=== PATIENT | male | born 1990 | race Caucasian/White ===

== ENCOUNTER 2017-09-09 20:10 | Observation (INO) | payer SELFPAY ==
[~2017-09-09] VITALS: Ht 193 cm; Wt 186.5 kg
--- OUTSIDE RECORDS SUMMARY | 2017-09-09 20:18 | XMS REPORT ---
Author Author [facility] Medical Staff Organization [facility] Address [address] [place] [address] Phone [phone] Summary purpose CCDA Sent to [facility] Chief Complaint and Reason for Visit No authorized Reason for Visit (Admitting Diagnosis) is available for this visit. Problem list No authorized problems tracked for continuity of care are available for this visit. Encounters No authorized problems tracked for encounter diagnoses are available for this visit. Medications No medications recorded for this patient visit Allergies, adverse reactions, alerts No allergy information is available for this patient. Immunizations No immunizations recorded for this patient visit Relevant diagnostic tests and/or laboratory data No authorized results are available for this patient visit History of procedures Procedure Code Code Type Description Date Performed Performing Physician 77844 CPT-4 SPECIMEN HANDLING 02-14-2016 ANDREEA CORTEZ Functional status No functional or cognitive status observations are available for this visit. Vital signs No authorized vital signs are available for this visit. Social history No Social History or smoking status observations were recorded for this visit. ( Unknown if ever smoked.) Treatment Plan No treatment plan text is available for this visit. Hospital discharge instructions No discharge instruction text is available for this visit.
--- OUTSIDE RECORDS SUMMARY | 2017-09-09 20:18 | XMS REPORT ---
Author Author [facility] Medical Staff Organization [facility] Address [address] [place] [address] Phone [phone] Summary purpose CCDA Sent to [facility] Chief Complaint and Reason for Visit [...] Code Type Description Date Performed Performing Physician 65088 CPT-4 SPECIMEN HANDLING 07-12-2015 ANDREEA CORTEZ Functional status No functional or [...]
--- OUTSIDE RECORDS SUMMARY | 2017-09-09 20:18 | XMS REPORT ---
Author [facility] Medical Staff Organization [facility] Address [address] [place] [address] Phone [phone] Summary purpose CCDA Sent to [facility] Chief Complaint and Reason for Visit Admit Diagnosis 1 HEALTH EXAM-GROUP SURVEY Problem list No authorized problems tracked for continuity of care are available for this visit. Encounters No authorized problems tracked for encounter diagnoses are available for this visit. Medications No home medications recorded for this patient visit Allergies, adverse reactions, alerts No allergy information is available for this patient. Immunizations No immunizations recorded for this patient visit Relevant diagnostic tests and/or laboratory data No authorized results are available for this patient visit History of procedures Procedure Code Code Type Description Date Performed Performing Physician 49096 CPT-4 SPECIMEN HANDLING PT-LAB 10-07-2014 ANDREEA CORTEZ Functional status No functional or [...]
--- OUTSIDE RECORDS SUMMARY | 2017-09-09 20:18 | XMS REPORT | Continuity of Care Document ---
Author Author [facility] Organization [facility] Address Unknown Phone Unavailable Allergies There is no data. Medications Medication Packaging Start Date Stop Date Route Dosage Sig BACTRIM DS ORAL 11/04/2015 11/11/2015 ORAL 28 twice daily Problems Date Dx Coded Attending Type Code Diagnosis Diagnosed By 10/07/2014 ANDREAE CORTEZ MD V70.5 HEALTH EXAM-GROUP SURVEY 07/12/2015 ANDREEA CORTEZ MD Z02.1 Encounter for pre-employment examination 02/14/2016 ANDREEA CORTEZ MD Z02.1 Encounter for pre-employment examination Procedures Code [place] [address] SPECIMEN HANDLING ANDREEA CORTEZ MD 10/07/2014 51781 SPECIMEN HANDLING PT-LAB ANDREEA CORTEZ MD 07/12/2015 98378 SPECIMEN HANDLING PT-LAB ANDREEA CORTEZ MD 02/14/2016 Results There is no data. Encounters ACCT No. Visit Date/Time Discharge Status Pt. Type Provider Facility Loc./Unit Complaint [id number] 02/14/2016 08:51:00 02/14/2016 08:51:00 DIS Outpatient ANDREEA CORTEZ MD [facility] LAB [id number] 07/12/2015 16:39:00 07/12/2015 16:39:00 DIS Outpatient ANDREEA CORTEZ MD [facility] LAB [id number] 10/07/2014 11:42:00 10/07/2014 11:42:00 DIS Outpatient ANDREEA CORTEZ MD [facility] LAB [id number] 06/27/2017 13:40:00 06/27/2017 23:59:59 CLS Outpatient GRETCHEN MOLINA [facility] [place] [id number] 11/05/2015 16:00:38 11/05/2015 23:59:59 CLS Outpatient MEERA LINARES [facility] LAB [id number] 11/18/2015 07:29:29 Document Registration [email or web address] 10/07/2014 11:43:22 ACT Document Registration
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
[2017-09-09] MEDS ORDERED: LACTATED RINGERS 1,000 ML IV ONE (21:01)
[2017-09-09] MEDS ORDERED: KETOROLAC 30 MG/ML VIAL IVP STA (21:01)
[2017-09-09] MEDS ORDERED: SERT100T8 PO (21:08)
[2017-09-09 21:14] LABS: BILIRUBIN,URINE NEGATIVE (NEGATIVE); CLARITY,URINE CLEAR; COLOR,URINE YELLOW; GLUCOSE, URINE (UA) NEGATIVE (NEGATIVE); KETONES,URINE NEGATIVE (NEGATIVE); LEUKOCYTE ESTERASE ,URINE NEGATIVE (NEGATIVE); NITRITE,URINE NEGATIVE (NEGATIVE); PH,URINE 6 (5-9); PROTEIN,URINE NEGATIVE (NEGATIVE); UROBILINOGEN,URINE 1 MG/DL (NORMAL)
[2017-09-09 21:15] LABS: BASOPHILS % (AUTO) 0 % (0-10); EOSINOPHILS # (AUTO) 0.2 10^3/uL (0.0-0.3); EOSINOPHILS % (AUTO) 2 % (0-10); HEMATOCRIT 43 % (40-54); HEMOGLOBIN 15.1 G/DL (13.3-17.7); LYMPHOCYTES # (AUTO) 2.5 X 10^3 (1.0-4.0); LYMPHOCYTES % (AUTO) 23 % (12-44); MEAN CORPUSCULAR HEMOGLOBIN 30 PG (25-34); MEAN CORPUSCULAR HGB CONC 35 G/DL (32-36); MEAN CORPUSCULAR VOLUME 84 FL (80-99); MEAN PLATELET VOLUME 10.5 FL (7.4-10.4); MONOCYTES # (AUTO) 0.8 X 10^3 (0.0-1.0); MONOCYTES % (AUTO) 8 % (0-12); NEUTROPHILS # (AUTO) 7.2 X 10^3 (1.8-7.8); NEUTROPHILS % (AUTO) 67 % (42-75); PLATELET COUNT 327 10^3/uL (130-400); RED BLOOD COUNT 5.11 10^6/uL (4.35-5.85); WHITE BLOOD COUNT 10.9 10^3/uL (4.3-11.0)
[2017-09-09] MEDS ORDERED: ONDANSETRON 4 MG/2 ML (SDV) Z0FRAN IVP ONE (21:15)
[2017-09-09 21:25] LABS: BACTERIA,URINE NEGATIVE /HPF; SQUAMOUS EPITHELIAL CELL,UR RARE /HPF; WBC,URINE RARE /HPF
--- NOTE | 2017-09-09 21:37 | Diagnostic Imaging Report ---
PROCEDURE: CT urinary tract, rule out kidney stone. TECHNIQUE: Multiple contiguous axial images were obtained through the abdomen and pelvis without the use of intravenous contrast. INDICATION: Right-sided abdominal pain. COMPARISON: None available. FINDINGS: Evaluation of the abdominal viscera is mildly limited without contrast. Lower chest: The lung bases are clear. No pericardial or pleural effusion. Peritoneum: No free intraperitoneal air or fluid. Liver and biliary system: Diffuse hypoattenuation of the liver is indicative of hepatic steatosis. No focal hepatic lesion by noncontrast imaging. The gallbladder is normal. No biliary duct dilation. Spleen and Pancreas: Spleen is normal. Unenhanced pancreas is grossly normal. Adrenals: Normal. tract: No renal or ureteral calculi. No obstructive uropathy. Urinary bladder is decompressed, limiting evaluation. Prostate and seminal vesicles are normal in appearance. GI tract: Stomach is decompressed. No bowel obstruction. No pericolonic inflammatory changes. Normal appendix. Vasculature and Lymph nodes: Normal caliber aorta. No abdominal or pelvic lymphadenopathy. Musculoskeletal: No concerning osseous lesion. IMPRESSION: 1. No acute obstructive or inflammatory process in the abdomen or pelvis. 2. No urinary tract calculi. 3. Diffuse hepatic steatosis. Dictated by: Dictated on workstation # [id number]
[2017-09-09 21:38] LABS: ALANINE AMINOTRANSFERASE 51 U/L (0-55); ALBUMIN 4.5 GM/DL (3.2-4.5); ALKALINE PHOSPHATASE 73 U/L (40-136); AMYLASE 37 U/L (25-125); BILIRUBIN,TOTAL 0.4 MG/DL (0.1-1.0); BUN/CREATININE RATIO 9; CALCIUM 9.6 MG/DL (8.5-10.1); CARBON DIOXIDE 24 MMOL/L (21-32); CHLORIDE 107 MMOL/L (98-107); CREATININE SERUM 0.85 MG/DL (0.60-1.30); GFR ESTIMATED > 60; GLUCOSE 97 MG/DL (70-105); LIPASE 19 U/L (8-78); POTASSIUM 3.7 MMOL/L (3.6-5.0); SODIUM 138 MMOL/L (135-145); TOTAL PROTEIN 7.5 GM/DL (6.4-8.2)
--- NOTE | 2017-09-09 21:43 | Diagnostic Imaging Report ---
INDICATION: Right-sided abdominal pain. COMPARISON: CT abdomen and pelvis performed earlier the same day. TECHNIQUE: KUB. FINDINGS: Nonobstructive bowel gas pattern. No free intraperitoneal air. No mineralized urinary tract calculi by radiography. Normal regional skeleton. IMPRESSION: Normal abdominal radiographs. Dictated by: Dictated on workstation # [id number]
[2017-09-09] MEDS ORDERED: morphine INJ 10 MG/ML 1ML (SYR OR VIAL) IVP STA (21:45)
[2017-09-09] MEDS ORDERED: FAMOTIDINE 20MG/2ML IV (PEPCID) ONE (21:58)
[2017-09-09] MEDS ORDERED: diphenhydrAMINE 50 MG/ML INJ (BENADRYL) ONE (21:58)
--- OUTSIDE RECORDS SUMMARY | 2017-09-09 22:02 | XMS REPORT | Continuity of Care Document ---
Author Author [facility] Organization [facility] Address Unknown Phone Unavailable Allergies There is no data. Medications Medication Packaging Start Date Stop Date Route Dosage Sig BACTRIM DS ORAL 11/04/2015 11/11/2015 ORAL 28 twice daily Problems Date Dx Coded Attending Type Code Diagnosis Diagnosed By 10/07/2014 ANDREEA CORTEZ MD V70.5 HEALTH EXAM-GROUP SURVEY 07/12/2015 ANDREEA CORTEZ MD Z02.1 Encounter for pre-employment examination 02/14/2016 ANDREEA CORTEZ MD Z02.1 Encounter for pre-employment examination Procedures Code Description [place] [address] SPECIMEN HANDLING ANDREEA CORTEZ MD 10/07/2014 38570 SPECIMEN HANDLING PT-LAB ANDREEA CORTEZ MD 07/12/2015 83343 SPECIMEN HANDLING PT-LAB ANDREEA CORTEZ MD 02/14/2016 Results There is no data. Encounters ACCT No. Visit Date/Time Discharge Status Pt. Type Provider Facility Loc./Unit Complaint [id number] 02/14/2016 08:51:00 02/14/2016 08:51:00 DIS Outpatient ANDREEA CORTEZ MD [facility] LAB [id number] 07/12/2015 16:39:00 07/12/2015 16:39:00 DIS Outpatient ANDREEA CORTEZ MD [facility] LAB [id number] 10/07/2014 11:42:00 10/07/2014 11:42:00 DIS Outpatient ANDREEA CORTEZ MD [facility] LAB [id number] 06/27/2017 13:40:00 06/27/2017 23:59:59 CLS Outpatient GRETCHEN MOLINA [facility] [id number] 11/05/2015 16:00:38 11/05/2015 23:59:59 CLS Outpatient MEERA LIANRES [facility] LAB [id number] 11/18/2015 07:29:29 Document Registration [email or web address] 10/07/2014 11:43:22 ACT Document Registration
[2017-09-09] MEDS ORDERED: KETOROLAC 30 MG/ML VIAL IVP PRN (23:45)
[2017-09-09] MEDS ORDERED: fentaNYL INJECTION 100 MCG/2 ML AMP IV PRN (23:45)
[2017-09-10 00:05] VITALS: BP 140/80
[2017-09-10] MEDS: D5 1/2 NS W/KCL 20 MEQ/L 1,000 ML IV SCH ×3 (00:47→13:48)
[2017-09-10] MEDS: ONDANSETRON 4 MG/2 ML (SDV) Z0FRAN IV PRN ×2 (00:47→08:45)
[2017-09-10 04:11] VITALS: BP 133/85
[2017-09-10 06:30] LABS: BASOPHILS % (AUTO) 0 % (0-10); EOSINOPHILS # (AUTO) 0.2 10^3/uL (0.0-0.3); EOSINOPHILS % (AUTO) 3 % (0-10); HEMATOCRIT 40 % (40-54); HEMOGLOBIN 13.9 G/DL (13.3-17.7); LYMPHOCYTES # (AUTO) 3.2 X 10^3 (1.0-4.0); LYMPHOCYTES % (AUTO) 35 % (12-44); MEAN CORPUSCULAR HEMOGLOBIN 30 PG (25-34); MEAN CORPUSCULAR HGB CONC 35 G/DL (32-36); MEAN CORPUSCULAR VOLUME 86 FL (80-99); MEAN PLATELET VOLUME 10.9 FL (7.4-10.4); MONOCYTES # (AUTO) 0.7 X 10^3 (0.0-1.0); MONOCYTES % (AUTO) 8 % (0-12); NEUTROPHILS % (AUTO) 55 % (42-75); PLATELET COUNT 268 10^3/uL (130-400); RED BLOOD COUNT 4.68 10^6/uL (4.35-5.85); WHITE BLOOD COUNT 9.1 10^3/uL (4.3-11.0)
[2017-09-10 06:42] LABS: ALANINE AMINOTRANSFERASE 43 U/L (0-55); ALBUMIN 3.8 GM/DL (3.2-4.5); ALKALINE PHOSPHATASE 62 U/L (40-136); BILIRUBIN,TOTAL 0.4 MG/DL (0.1-1.0); BUN/CREATININE RATIO 9; CALCIUM 9.2 MG/DL (8.5-10.1); CARBON DIOXIDE 26 MMOL/L (21-32); CHLORIDE 108 MMOL/L (98-107); CREATININE SERUM 0.95 MG/DL (0.60-1.30); GFR ESTIMATED > 60; GLUCOSE 101 MG/DL (70-105); POTASSIUM 3.9 MMOL/L (3.6-5.0); SODIUM 141 MMOL/L (135-145)
--- NOTE | 2017-09-10 07:00 | ED Abdominal Pain ---
General Chief Complaint: Abdominal/GI Problems Stated Complaint: RLQ PAIN Nursing Triage Note: rlq abdominal pain n/v Sepsis Screen: No Definite Risk Source of Information: Patient Exam Limitations: No Limitations History of Present Illness Date Seen by Provider: Sep 09, 2017 Time Seen by Provider: 20:54 Initial Comments PT ARRIVES VIA POV FROM HOME C/O SEVERE RLQ PAIN SINCE 1900 TONIGHT STATES PAIN IS SHARP AND CONSTANT NO RADIATION OF PAIN PAIN IS WORSE WITH ANY MOVEMENTS, AND WITH BUMPS IN ROAD ON CAR RIDE HERE. C/O NAUSEA, AND VOMITED X 2 HAS HAD SEVERAL BM'S TODAY--SLIGHTLY LOOSE NO KNOWN FEVER NO HISTORY OF SIMILAR, AND NO HISTORY OF ABDOMINAL SURGERIES LAST ATE AROUND 1800 TONIGHT PCP: [facility] Allergies and Home Medications Allergies Coded Allergies: morphine (Verified Allergy, Intermediate, HIVES, 09/09/17) Patient Home Medication List Home Medication List Reviewed: Yes Review of Systems Constitutional: no symptoms reported, No chills, No diaphoresis, No fever Respiratory: No Symptoms Reported Cardiovascular: No Symptoms Reported Gastrointestinal: See HPI, Abdominal Pain, Nausea, Denies Poor Appetite, Vomiting Genitourinary: No Symptoms Reported Musculoskeletal: no symptoms reported Skin: no symptoms reported Psychiatric/Neurological: No Symptoms Reported Endocrine: No Symptoms Reported Hematologic/Lymphatic: No Symptoms Reported Past Ftchvkt-Clzpix-Oqjbti Hx Patient Social History Alcohol Use: Occasionally Uses Alcohol Beverage of Choice: Beer, Whiskey Recreational Drug Use: No Smoking Status: Never a Smoker Type Used: Smokeless Tobacco 2nd Hand Smoke Exposure: No Recent Foreign Travel: No Contact w/Someone Who Travel: No Recent Infectious Disease Expo: No Recent Hopitalizations: No Immunizations Up To Date Tetanus Booster (TDap): Less than 5yrs Seasonal Allergies Seasonal Allergies: No Past Medical History Surgeries: Yes Tonsillectomy Respiratory: No Cardiac: No Neurological: No Genitourinary: No Gastrointestinal: No Musculoskeletal: No Endocrine: No (OBESITY) HEENT: No Cancer: No Psychosocial: Yes Anxiety Integumentary: No Blood Disorders: No Adverse Reaction/Blood Tranf: No Physical Exam Vital Signs Vital Signs - First Documented 09/09/17 20:50 Temp 98.9 Pulse 108 Resp 20 B/P (MAP) 139/70 (93) Pulse Ox 98 O2 Delivery Room Air Capillary Refill : Less Than 3 Seconds General Appearance: no apparent distress (BUT LOOKS UNCOMFORTABLE, WALKS BENT AT WAIST), obese Respiratory: normal breath sounds, no respiratory distress, no accessory muscle use Cardiovascular: regular rate, rhythm, no murmur Gastrointestinal: normal bowel sounds, soft, no organomegaly, no pulsatile mass , No distended, guarding, rebound (SIGNIFICANT), tenderness (MARKED TENDERNESS TO RLQ, + ROVSING'S, + PSOAS), No hernia, No mass, other Progress/Results/Core Measures Lab Results Laboratory Tests Test 09/09/17 20:55 09/09/17 21:00 Range/Units Urine Color YELLOW Urine Clarity CLEAR Urine pH 6 5-9 Urine Specific [place] 1.020 1.016-1.022 Urine Protein NEGATIVE NEGATIVE Urine Glucose (UA) NEGATIVE NEGATIVE Urine Ketones NEGATIVE NEGATIVE Urine Nitrite NEGATIVE NEGATIVE Urine Bilirubin NEGATIVE NEGATIVE Urine Urobilinogen 1 NORMAL MG/DL Urine Leukocyte Esterase NEGATIVE NEGATIVE Urine RBC (Auto) NEGATIVE NEGATIVE Urine RBC NONE /HPF Urine WBC RARE /HPF Urine Squamous Epithelial Cells RARE /HPF Urine Renal Epithelial Cells NONE /HPF Urine Crystals NONE /LPF Urine Bacteria NEGATIVE /HPF Urine Casts NONE /LPF Urine Mucus SMALL H /LPF Urine Culture Indicated NO White Blood Count 10.9 4.3-11.0 10^3/uL Red Blood Count 5.11 4.35-5.85 10^6/uL Hemoglobin 15.1 13.3-17.7 G/DL Hematocrit 43 40-54 % Mean Corpuscular Volume 84 80-99 FL Mean Corpuscular Hemoglobin 30 25-34 PG Mean Corpuscular Hemoglobin Concent 35 32-36 G/DL Red Cell Distribution Width 13.0 10.0-14.5 % Platelet Count 327 130-400 10^3/uL Mean Platelet Volume 10.5 H 7.4-10.4 FL Neutrophils (%) (Auto) 67 42-75 % Lymphocytes (%) (Auto) 23 12-44 % Monocytes (%) (Auto) 8 0-12 % Eosinophils (%) (Auto) 2 0-10 % Basophils (%) (Auto) 0 0-10 % Neutrophils # (Auto) 7.2 1.8-7.8 X 10^3 Lymphocytes # (Auto) 2.5 1.0-4.0 X 10^3 Monocytes # (Auto) 0.8 0.0-1.0 X 10^3 Eosinophils # (Auto) 0.2 0.0-0.3 10^3/uL Basophils # (Auto) 0.0 0.0-0.1 10^3/uL Sodium Level 138 135-145 MMOL/L Potassium Level 3.7 3.6-5.0 MMOL/L Chloride Level 107 98-107 MMOL/L Carbon Dioxide Level 24 21-32 MMOL/L Anion Gap 7 5-14 MMOL/L Blood Urea Nitrogen 8 7-18 MG/DL Creatinine 0.85 0.60-1.30 MG/DL Estimat Glomerular Filtration Rate > 60 BUN/Creatinine Ratio 9 Glucose Level 97 70-105 MG/DL Calcium Level 9.6 8.5-10.1 MG/DL Total Bilirubin 0.4 0.1-1.0 MG/DL Aspartate Amino Transf (AST/SGOT) 22 5-34 U/L Alanine Aminotransferase (ALT/SGPT) 51 0-55 U/L Alkaline Phosphatase 73 40-136 U/L Total Protein 7.5 6.4-8.2 GM/DL Albumin 4.5 3.2-4.5 GM/DL Amylase Level 37 25-125 U/L Lipase 19 8-78 U/L My Orders Orders - MARIO YA DO Saline Lock/Iv-Start (09/09/17 21:01) Amylase (09/09/17 21:01) Cbc With Automated Diff (09/09/17 21:01) Comprehensive Metabolic Panel (09/09/17 21:01) Lipase (09/09/17 21:01) Ua Culture If Indicated (09/09/17 21:01) Abdomen/Kub 1view (09/09/17 21:01) Ct Abd/Pelvis Wo(Kidney Stone) (09/09/17 21:01) Saline Lock/Iv-Start (09/09/17 21:01) Lactated Ringers (Lr 1000 Ml Iv Solution (09/09/17 21:01) Ondansetron Injection (Zofran Injectio (09/09/17 21:15) Ketorolac Injection (Toradol Injection) (09/09/17 21:01) Morphine Injection (Morphine Injection (09/09/17 21:45) Medications Given in ED Current Medications Medications Dose Ordered Sig/Thom Route Start Time Stop Time Status Last Admin Dose Admin Lactated Ringer's 1,000 ml @ 0 mls/hr Q0M ONCE IV 09/09/17 21:01 09/09/17 21:03 DC 09/09/17 21:15 0 MLS/HR Ondansetron HCl 8 mg ONCE ONCE IVP 09/09/17 21:15 09/09/17 21:16 DC 09/09/17 21:15 8 MG Vital Signs/I&O 09/09/17 09/09/17 20:50 21:15 Temp 98.9 98.9 Pulse 108 Resp 20 B/P (MAP) 139/70 (93) Pulse Ox 98 O2 Delivery Room Air Blood Pressure Mean: 101 Progress Note : Progress Note NO SIGNIFICANT RELIEF WITH TORADOL PT WAS GIVEN MORPHINE AND HAD AN IMMEDIATE REACTION--DIFFUSE ERYTHEMA, DIFFUSE ITCHING, FACE IS PALE, DIAPHORETIC, NAUSEA, DIZZINESS, STATES HIS WHOLE BODY FEELS TIGHT. PT DENIES SHORTNESS OF BREATH, NO SWELLING ANYWHERE, NO DIFFICULTY SWALLOWING GIVEN PEPCID AND BENADRYL WITH RESOLUTION OF SYMPTOMS Comments CT ABDOMEN/PELVIS AND ABD XRAYS--NO ACUTE PROCESS, PER RADIOLOGIST REPORT @ 2138 Reviewed: Reviewed by Me Departure Communication (Admissions) 2140--SPOKE WIHT DR. PACE, ACCEPTS PT FOR ADMIT/OBSERVATION. ORDERS NOTED. Impression Primary Impression: RLQ abdominal pain Disposition: ADMITTED INPATIENT Condition: Improved Admissions Decision to Admit Reason: Admit from ER (General) Decision to Admit/Date: Sep 09, 2017 Time/Decision to Admit Time: 21:45 Departure-Patient Inst. Referrals: NO,LOCAL PHYSICIAN (PCP) Primary Care Physician MARIO YA DO Sep 10, 2017 07:00
[2017-09-10 08:00] VITALS: BP 120/76
[2017-09-10 12:00] VITALS: BP 133/64
[2017-09-10] MEDS ORDERED: ONDN4T PO (15:57)
--- NOTE | 2017-09-10 16:00 | Discharge Inst-Simple/Standard ---
Discharge Inst-Standard Discharge Medications New, Converted or Re-Newed RX: Transmitted to Pharmacy Patient Instructions/Follow Up Plan of Care/Instructions/FU: 2 weeks Sanjuanita Activity as Tolerated: Yes Discharge Diet: Liquid Diet (advance as tolerates) Other Inst to Patient Follow up Appt: Make appointment for 2 weeks. If any worsening or change in condition be seen at that time. Symptoms to Report: Appetite Changes, Extremity Discoloration, Numbness/Tingling, Swelling Increased , Bleeding Excessive, Eyesight Changes, Pain Increased, Urine Color Change, Constipation(Persistent), Fever over 101 degree F, Pain/Pressure in chest, Urinating Difficulty, Cough Up/Vomit Blood, Heart Beat Irreg/Pounding, Pain/ Pressure in jaw, Vaginal Bleeding Increase, Cramps in feet or legs, Lightheadedness, Pain/Pressure in shoulder, Diarrhea(Persistent), Memory Changes Suddenly, Questions/Concerns, Weight gain consecutive days, Dizziness/ Fainting, Nausea/Vomiting, Shortness of Breath, Weight gain over 2 pounds. If eyes or skin turn yellow notify physician. If questions or concerns contact your physician Or seek help at emergency department. WAN TORRES DO Sep 10, 2017 16:00
--- NOTE | 2017-09-10 16:09 | History & Physical-Surgical ---
History of Present Illness History of Present Illness Reason for visit/HPI Chief complaint right lower quadrant abdominal pain. Patient is a 26-year-old male who last night began having severe right lower quadrant abdominal pain. This is a constant type pain without any radiation. Patient states that as a 10 out of 10 pain. Patient was also having some nausea and had 2 episodes of emesis last night as well. He also had a couple slight loose bowel movements yesterday during the day. Patient states that nothing was making the pain better and that anytime he is having some movements that the pain would worsen. Patient Steri-Strips any pain like this before. He denies any trauma to the right side. Patient today stating that his pain has significantly improved. Since about a 2-4 out of 10. He does not have any significant nausea at this time. He's not had any further emesis. He denies any fever sweats chills shortness of breath or chest pain. Patient had a CT scan which I reviewed the appendix has normal appearance. There is no obstructive process or acute inflammatory process. Patient repeat labs are still within normal limits. Date of Admission Sep 09, 2017 at 22:25 Date Seen by Provider: Sep 10, 2017 Time Seen by Provider: 10:00 I consulted on this patient on 09/10/17 16:03 Attending Physician Wan Gann DO Admitting Physician No,Local Physician Consult Allergies and Home Medications Allergies Coded Allergies: morphine (Verified Allergy, Intermediate, HIVES, 09/09/17) Home Medications Ondansetron HCl 4 Mg Tab, 4 MG PO Q6H Prescribed by: WAN GANN on 09/10/17 1557 Sertraline HCl 100 Mg Tablet, 150 MG PO HS, (Reported) TAKES 1 & 1/2 (100MG) TABLET Patient Home Medication List Home Medication List Reviewed: Yes Past Shjnecv-Lajyug-Hkyuns Hx Patient Social History Alcohol Use: Occasionally Uses Recreational Drug Use: No Smoking Status: Never a Smoker Type Used: Smokeless Tobacco 2nd Hand Smoke Exposure: No Recent Foreign Travel: No Contact w/Someone Who Travel: No Recent Infectious Disease Expo: No Recent Hopitalizations: No Physical Abuse Screen: No Sexual Abuse: No Immunizations Up To Date Tetanus Booster (TDap): Less than 5yrs Seasonal Allergies Seasonal Allergies: No Surgeries History of Surgeries: Yes Surgeries: Tonsillectomy Respiratory History of Respiratory Disorde: No Cardiovascular History of Cardiac Disorders: No Neurological History of Neurological Disord: No Genitourinary History of Genitourinary Disor: No Gastrointestinal History of Gastrointestinal Di: No Musculoskeletal History of Musculoskeletal Dis: No Endocrine History of Endocrine Disorders: No (OBESITY) HEENT History of HEENT Disorders: No Cancer History of Cancer: No Psychosocial History of Psychiatric Problem: Yes Behavioral Health Disorders: Anxiety Integumentary History of Skin or Integumenta: No Blood Transfusions History of Blood Disorders: No Adverse Reaction to a Blood Tr: No Family Medical History Significant Family History: No Pertinent Family Hx Constitutional: no symptoms reported EENTM: no symptoms reported Respiratory: no symptoms reported Cardiovascular: no symptoms reported Gastrointestinal: RLQ Genitourinary: no symptoms reported Musculoskeletal: no symptoms reported Skin: no symptoms reported Psychiatric/Neurological: No Symptoms Reported Physical Exam Vital Signs Vital Signs - First Documented 09/09/17 20:50 Temp 98.9 Pulse 108 Resp 20 B/P (MAP) 139/70 (93) Pulse Ox 98 O2 Delivery Room Air Capillary Refill : Less Than 3 Seconds General Appearance: No Apparent Distress, WD/WN HEENT: PERRL/EOMI, Normal ENT Inspection Neck: Normal Inspection, Non Tender, Supple Respiratory: No Accessory Muscle Use, No Respiratory Distress Cardiovascular: Regular Rate, Rhythm Gastrointestinal: Soft, No Hernia, Tenderness (Minimal right lower quadrant) Rectal: Deferred Back: Normal Inspection Extremity: Normal Inspection, Normal Range of Motion, Non Tender Neurologic/Psychiatric: Alert, Oriented x3, No Motor/Sensory Deficits, Normal 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, 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 Norm as Tested Skin: Normal Color, Warm/Dry Lymphatic: No Adenopathy Data Review Labs Laboratory Tests 09/09/17 20:55: Urine Color YELLOW, Urine Clarity CLEAR, Urine pH 6, Urine Specific [place] 1.020, Urine Protein NEGATIVE, Urine Glucose (UA) NEGATIVE, Urine Ketones NEGATIVE, Urine Nitrite NEGATIVE, Urine Bilirubin NEGATIVE, Urine Urobilinogen 1 , Urine Leukocyte Esterase NEGATIVE, Urine RBC (Auto) NEGATIVE, Urine RBC NONE, Urine WBC RARE, Urine Squamous Epithelial Cells RARE, Urine Renal Epithelial Cells NONE, Urine Crystals NONE, Urine Bacteria NEGATIVE, Urine Casts NONE, Urine Mucus SMALLH, Urine Culture Indicated NO 09/09/17 21:00: White Blood Count 10.9, Red Blood Count 5.11, Hemoglobin 15.1, Hematocrit 43, Mean Corpuscular Volume 84, Mean Corpuscular Hemoglobin 30, Mean Corpuscular Hemoglobin Concent 35, Red Cell Distribution Width 13.0, Platelet Count 327, Mean Platelet Volume 10.5H, Neutrophils (%) (Auto) 67, Lymphocytes (%) (Auto) 23 , Monocytes (%) (Auto) 8, Eosinophils (%) (Auto) 2, Basophils (%) (Auto) 0, Neutrophils # (Auto) 7.2, Lymphocytes # (Auto) 2.5, Monocytes # (Auto) 0.8, Eosinophils # (Auto) 0.2, Basophils # (Auto) 0.0, Sodium Level 138, Potassium Level 3.7, Chloride Level 107, Carbon Dioxide Level 24, Anion Gap 7, Blood Urea Nitrogen 8, Creatinine 0.85, Estimat Glomerular Filtration Rate > 60, BUN/ Creatinine Ratio 9, Glucose Level 97, Calcium Level 9.6, Total Bilirubin 0.4, Aspartate Amino Transf (AST/SGOT) 22, Alanine Aminotransferase (ALT/SGPT) 51, Alkaline Phosphatase 73, Total Protein 7.5, Albumin 4.5, Amylase Level 37, Lipase 19 09/10/17 05:25: White Blood Count 9.1, Red Blood Count 4.68, Hemoglobin 13.9, Hematocrit 40, Mean Corpuscular Volume 86, Mean Corpuscular Hemoglobin 30, Mean Corpuscular Hemoglobin Concent 35, Red Cell Distribution Width 13.0, Platelet Count 268, Mean Platelet Volume 10.9H, Neutrophils (%) (Auto) 55, Lymphocytes (%) (Auto) 35 , Monocytes (%) (Auto) 8, Eosinophils (%) (Auto) 3, Basophils (%) (Auto) 0, Neutrophils # (Auto) 5.0, Lymphocytes # (Auto) 3.2, Monocytes # (Auto) 0.7, Eosinophils # (Auto) 0.2, Basophils # (Auto) 0.0, Sodium Level 141, Potassium Level 3.9, Chloride Level 108H, Carbon Dioxide Level 26, Anion Gap 7, Blood Urea Nitrogen 9, Creatinine 0.95, Estimat Glomerular Filtration Rate > 60, BUN/ Creatinine Ratio 9, Glucose Level 101, Calcium Level 9.2, Total Bilirubin 0.4, Aspartate Amino Transf (AST/SGOT) 17, Alanine Aminotransferase (ALT/SGPT) 43, Alkaline Phosphatase 62, Total Protein 6.0L, Albumin 3.8 Assessment/Plan Assessment/Plan Admission Diagonsis Right lower quadrant abdominal pain, nausea and vomiting Admission Status: Observation Assessment/Plan Patient's right lower quadrant abdominal pain, nausea and vomiting. Patient feeling better today. His CT scan was reviewed which I discussed with him the findings. He is feeling better at this time. We'll start him on clear liquids his repeat labs are still within normal range. He is feeling better if he tolerates liquids will likely go home later today. He wants to go home and if he has any worsening of his symptoms or overall condition he will return for reevaluation. Final Diagnosis Right lower quadrant abdominal pain, nausea and vomiting Clinical Quality Measures DVT/VTE Risk/Contraindication: Risk Factor Score Per Nursin RFS Level Per Nursing on Admit: 3=High WAN GANN DO Sep 10, 2017 16:09
== END 2017-09-10 15:57 | disposition home or self-care (01) ==
LOC: ER 20:15 → 4TH 21:45 → UNDOADMOB 21:45 → 4TH 22:25
PROVIDERS: ADMIT Surgery; ATTEND Surgery
DX: R10.31 Right lower quadrant pain (principal); R11.2 Nausea with vomiting, unspecified; F41.9 Anxiety disorder, unspecified; Z79.899 Other long term (current) drug therapy
CPT/HCPCS: 36415; 74018; 74176; 80053; 81000; 82150; 83690; 85025; 96361; 96374; 96375; G0378

== ENCOUNTER → 2017-09-12 | Outpatient (CLI) | payer SELFPAY ==
[~2017-09-12] MED LIST: ONDN4T PO; SERT100T8 PO
[2017-09-12 10:58] LABS: BASOPHILS % (AUTO) 0 % (0-10); EOSINOPHILS # (AUTO) 0.2 10^3/uL (0.0-0.3); EOSINOPHILS % (AUTO) 2 % (0-10); HEMATOCRIT 44 % (40-54); HEMOGLOBIN 15.2 G/DL (13.3-17.7); LYMPHOCYTES # (AUTO) 1.8 X 10^3 (1.0-4.0); LYMPHOCYTES % (AUTO) 22 % (12-44); MEAN CORPUSCULAR HEMOGLOBIN 29 PG (25-34); MEAN CORPUSCULAR HGB CONC 34 G/DL (32-36); MEAN CORPUSCULAR VOLUME 85 FL (80-99); MEAN PLATELET VOLUME 10.3 FL (7.4-10.4); MONOCYTES # (AUTO) 0.5 X 10^3 (0.0-1.0); MONOCYTES % (AUTO) 6 % (0-12); NEUTROPHILS # (AUTO) 5.9 X 10^3 (1.8-7.8); NEUTROPHILS % (AUTO) 70 % (42-75); PLATELET COUNT 305 10^3/uL (130-400); RED BLOOD COUNT 5.21 10^6/uL (4.35-5.85); RED CELL DISTRIBUTION WIDTH 12.9 % (10.0-14.5); WHITE BLOOD COUNT 8.5 10^3/uL (4.3-11.0)
[2017-09-12 11:25] LABS: ALANINE AMINOTRANSFERASE 54 U/L (0-55); ALBUMIN 4.6 GM/DL (3.2-4.5); ALKALINE PHOSPHATASE 69 U/L (40-136); BILIRUBIN,TOTAL 0.5 MG/DL (0.1-1.0); BUN/CREATININE RATIO 10; CALCIUM 9.5 MG/DL (8.5-10.1); CARBON DIOXIDE 25 MMOL/L (21-32); CHLORIDE 105 MMOL/L (98-107); CREATININE SERUM 0.91 MG/DL (0.60-1.30); GFR ESTIMATED > 60; GLUCOSE 94 MG/DL (70-105); POTASSIUM 4.5 MMOL/L (3.6-5.0); SODIUM 139 MMOL/L (135-145); TOTAL PROTEIN 7.6 GM/DL (6.4-8.2)
== END ==
LOC: LAB 10:45
PROVIDERS: ATTEND Surgery
DX: R10.31 Right lower quadrant pain (principal)
CPT/HCPCS: 36415; 80053; 85025

== ENCOUNTER 2017-11-25 18:30 | Emergency (ER) | payer SELFPAY ==
[~2017-11-25] VITALS: Ht 193 cm; Wt 172.4 kg
[2017-11-25] MEDS ORDERED: LIDOCAINE 2% 20 ML (XYLOCAINE) VIAL INJ ONE (19:30)
[2017-11-25] MEDS ORDERED: AUGMENTIN 875 MG TAB (AMOXICILLIN/CLAVULANATE) PO SCH (19:30)
[2017-11-25] MEDS ORDERED: TETANUS,DIPTH,PERTUSS P/F (BOOSTRIX) 0.5 ML VIAL IM ONE (19:30)
--- NOTE | 2017-11-25 19:49 | ED Upper Extremity ---
General Chief Complaint: Bite-Animal/Human/Insect Stated Complaint: R HAND DOG BITE Nursing Triage Note: PT STATES HE WAS BITTEN BY HIS OWN DOG ON THE RIGHT PALM WHILE PLAYING WITH A TOY. PT STATES THERE IS SOMETHING POPPING OUT OF THE WOUND WHEN HE MOVES HIS HAND. PT STATES DOG IS NOT UP TO DATE ON HIS SHOTS. Nursing Sepsis Screen: No Definite Risk Source: patient Exam Limitations: no limitations History of Present Illness Date Seen by Provider: Nov 25, 2017 Time Seen by Provider: 19:44 Initial Comments To ER with c/o single puncture wound to thenar eminence of palm of right hand from his persian bulldog while playing this evening. The dog tried to bite the toy they were playing with and accidentally bit Joshua's hand. 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 His tetanus is not up to date. Is concerned because anytime if he flexes his hand some piece of flesh seems to bulge out from the center of this wound. Onset: just prior to arrival Severity: moderate Pain/Injury Location: left thumb Allergies and Home Medications Allergies Coded Allergies: morphine (Verified Allergy, Intermediate, HIVES, 09/09/17) Home Medications Amoxicillin/Potassium Clav 1 Each Tablet, 1 EACH PO BID Prescribed by: DE DELEON on 11/25/17 1950 Ondansetron HCl 4 Mg Tab, 4 MG PO Q6H Prescribed by: WAN TORRES on 09/10/17 1557 Sertraline HCl 100 Mg Tablet, 150 MG PO HS, (Reported) TAKES 1 & 1/2 (100MG) TABLET Patient Home Medication List Home Medication List Reviewed: Yes Constitutional: see HPI EENTM: see HPI Respiratory: no symptoms reported Cardiovascular: no symptoms reported Genitourinary: no symptoms reported Musculoskeletal: see HPI Skin: no symptoms reported Psychiatric/Neurological: No Symptoms Reported Past Ftnqkzr-Hegery-Fhqmhe Hx Patient Social History Alcohol Beverage of Choice: Beer, Whiskey Type Used: Smokeless Tobacco 2nd Hand Smoke Exposure: No Recent Foreign Travel: No Contact w/Someone Who Travel: No Recent Infectious Disease Expo: No Recent Hopitalizations: No Immunizations Up To Date Tetanus Booster (TDap): Less than 5yrs Seasonal Allergies Seasonal Allergies: No Past Medical History Surgeries: Yes Tonsillectomy Respiratory: No Cardiac: No Neurological: No Genitourinary: No Gastrointestinal: No Musculoskeletal: No Endocrine: No (OBESITY) HEENT: No Cancer: No Psychosocial: Yes Anxiety Integumentary: No Blood Disorders: No Adverse Reaction/Blood Tranf: No Family Medical History No Pertinent Family Hx Physical Exam Vital Signs Vital Signs - First Documented 11/25/17 19:10 Temp 97.9 Pulse 90 Resp 16 B/P (MAP) 173/116 (135) O2 Delivery Room Air Capillary Refill : Less Than 3 Seconds General Appearance: WD/WN, no apparent distress, obese HEENT: PERRL/EOMI, normal ENT inspection Neck: non-tender, full range of motion Respiratory: no respiratory distress, no accessory muscle use Gastrointestinal: normal bowel sounds, non tender Shoulder: normal inspection Elbow/Forearm: normal inspection, non-tender Wrist: Yes normal inspection Hand: Right, laceration (there is a single puncture wound to the thenar eminence of the right hand. There is in fact a piece of adipose tissue that is bulging out of the wound) Neurologic/Psychiatric: alert, normal mood/affect, oriented x 3 Skin: normal color, warm/dry Procedures/Interventions Wound Location: Upper Extremities Wound Length (cm): 0.5 Wound's Depth, Shape: sub Q Wound Explored: clean Betadine Prep?: Yes Anesthesia: 1% Lidocaine Volume Anesthetic (ccs): 3 Suture: Prolene Suture Size: 4-0 Number of Sutures: 1 Layer Closure?: 0 Number Deep Layer Sutures: 0 Progress area was anesthetized locally with 2% lidocaine without epinephrine. Wound then scrubbed with Betadine/saline. The tissue that was protruding from the center of the wound was trimmed, the wound was closed because of this protruding tissue with 1 single simple interrupted sutures size 4-0 Prolene. I did discuss with the patient and his that closing this was necessary because of the tissue protruding from the wound but this would increase his risk of infection. Progress/Results/Core Measures Results/Orders My Orders Orders - ED DELEON APRN Hand, Right, 3 Views (11/25/17 19:19) Dipht,Pertuss(Acell),Tet Adult (Boostrix (11/25/17 19:30) Amoxicillin/Clavulanate Tablet (Augmenti (11/25/17 19:30) Lidocaine 2% Injection 20 Ml (Xylocaine (11/25/17 19:30) Medications Given in ED Current Medications Medications Dose Ordered Sig/Thom Route Start Time Stop Time Status Last Admin Dose Admin Diphtheria/ Tetanus/Acell Pertussis 0.5 ml ONCE ONCE IM 11/25/17 19:30 11/25/17 19:31 DC 11/25/17 19:39 0.5 ML Lidocaine HCl 2 ml ONCE ONCE INJ 11/25/17 19:30 11/25/17 19:31 DC 11/25/17 19:37 2 ML Vital Signs/I&O 11/25/17 19:10 Temp 97.9 Pulse 90 Resp 16 B/P (MAP) 173/116 (135) O2 Delivery Room Air Blood Pressure Mean: 135 Departure Impression Primary Impression: Dog bite Disposition: AGAINST MEDICAL ADVICE Condition: Stable Departure-Patient Inst. Decision time for Depature: 19:49 Referrals: NO,LOCAL PHYSICIAN (PCP/Family) Primary Care Physician Patient Instructions: Animal Bites (DC) Add. Discharge Instructions: 1. The stitches should be removed in about 7-10 days. Keep an eye on this for any sign of infection which would include puslike drainage, increased swelling, fevers, redness. Take antibiotics as directed starting tomorrow.All discharge instructions reviewed with patient and/or family. Voiced understanding. Scripts Amoxicillin/Potassium Clav (Augmentin 875-125 Tablet) 1 Each Tablet 1 EACH PO BID, #10 TAB Prov: DE DELEON APRN 11/25/17 Work/School Note: Work Release Form Date Seen in the Emergency Department: Nov 25, 2017 Return to Work: Nov 27, 2017 DE DELEON APRN Nov 25, 2017 19:49
[2017-11-25] MEDS ORDERED: AMOX-358 PO (19:50)
--- NOTE | 2017-11-25 19:50 | Diagnostic Imaging Report ---
Three views of the right hand. INDICATION: Dog bite first metacarpal region. FINDINGS: There is no radiographic evidence of acute fracture, dislocation or osseous injury. There is no retained foreign body or evidence of soft tissue gas. IMPRESSION: 1. No evidence of osseous injury. No retained foreign body or soft tissue gas. Dictated by: Dictated on workstation # [id number]
[2017-11-25 19:54] VITALS: BP 173/116
== END 2017-11-25 19:54 | disposition left against medical advice (07) ==
LOC: EDUNIT# 18:30 → ER 18:31
DX: S61.451A Open bite of right hand, initial encounter (principal); E66.9 Obesity, unspecified; F41.9 Anxiety disorder, unspecified; Z23 Encounter for immunization; Z88.6 Allergy status to analgesic agent; W54.0XXA Bitten by dog, initial encounter
CPT/HCPCS: 73130; 90715

== ENCOUNTER 2020-10-09 19:27 | Emergency (ER) | payer BC ==
[~2020-10-09] VITALS: Ht 190 cm; Wt 193.0 kg
[~2020-10-09 19:27] MED LIST changes: +AMOX-358 PO; +SERT-414 PO; -SERT100T8 PO
[2020-10-09] MEDS ORDERED: DESV50TA PO (19:52)
[2020-10-09] MEDS ORDERED: ALPRAZolam 0.5 MG (XANAX) TAB ONE (20:04)
[2020-10-09] MEDS ORDERED: ALPRAZolam 0.5 MG (XANAX) TAB PO STA (20:12)
--- NOTE | 2020-10-09 20:12 | ED Psychosocial ---
General Chief Complaint: Psych/Social Disorder Stated Complaint: CHEST PAIN/TIGHTNESS NAUSEA LEFT SHOULDER PAIN Nursing Triage Note: C/O CHEST TIGHTNESS X90-120 MIN AFTER CHASING DOG. REPORTS FACIAL/ARM NUMBNESS, NAUSEA, DIZZINESS. Source: patient Exam Limitations: no limitations History of Present Illness Date Seen by Provider: October 09, 2020 Time Seen by Provider: 19:40 Initial Comments Patient presents ER by private conveyance with his gcdxke-[id number] and chief complaint of for the past hour he started having chest pain, shortness of air, dizziness, tingling in his face around his lips and hands. He has a history of panic attacks followed by VICTOR M on Pristiq. He does not take anything to abort panic attacks. He has had panic attacks before. He says he was just chasing his dog when it started and has not gone away. He says his father had a stroke in his 30s and had high blood pressure. He denies smoking high blood pressure hyperlipidemia diabetes. Allergies and Home Medications Allergies Coded Allergies: morphine (Verified Allergy, Intermediate, HIVES, 09/09/17) codeine (Unverified Allergy, Unknown, 11/25/17) Home Medications Hydralazine HCl 25 Mg Tablet, 25 MG PO Q6H PRN for ANXIETY Prescribed by: JUSTICE DURBIN on 10/09/202134 Hydroxyzine Pamoate 25 Mg Capsule, 25 MG PO Q6H PRN for ANXIETY Prescribed by: JUSTICE DURBIN on 10/09/202149 Patient Home Medication List Home Medication List Reviewed: Yes Review of Systems Constitutional: No chills, No diaphoresis EENTM: No ear discharge, No ear pain Respiratory: No cough; short of breath Cardiovascular: No chest pain, No edema Gastrointestinal: No abdominal pain, No nausea, No vomiting Genitourinary: No discharge, No dysuria Musculoskeletal: No back pain, No joint pain Psychiatric/Neurological: See HPI, Anxiety; Denies Depressed All Other Systems Reviewed Negative Unless Noted: Yes Past Dopedfn-Rhtbws-Kpqdlb Hx Patient Social History Alcohol Use: Rarely Uses Number of Drinks Today: GG Alcohol Beverage of Choice: Beer, Whiskey Drug of Choice: Denies Smoking Status: Never a Smoker Type Used: Smokeless Tobacco 2nd Hand Smoke Exposure: No Recent Infectious Disease Expo: No Recent Hopitalizations: No Immunizations Up To Date Tetanus Booster (TDap): Less than 5yrs Seasonal Allergies Seasonal Allergies: No Past Medical History Surgeries: Yes Tonsillectomy Respiratory: No Cardiac: No Neurological: No Genitourinary: No Gastrointestinal: No Musculoskeletal: No Endocrine: Yes (OBESITY) HEENT: No Cancer: No Psychosocial: Yes Anxiety Integumentary: No Recent Skin Changes Blood Disorders: No Adverse Reaction/Blood Tranf: No Family Medical History No Pertinent Family Hx Physical Exam Vital Signs - First Documented Capillary Refill : Less Than 3 Seconds Height, Weight, BMI Height: 6'4.00" Weight: 380lbs. 4.0oz. [id number]; 53.00 BMI Method:Stated General Appearance: mild distress, obese (Morbid) HEENT: PERRL/EOMI, pharynx normal Neck: full range of motion, normal inspection Respiratory: chest non-tender, lungs clear, normal breath sounds, no accessory muscle use, respiratory distress (Hyperventilating) Cardiovascular: normal peripheral pulses, regular rate, rhythm Peripheral Pulses: 2+ Radial Pulses (R), 2+ Radial Pulses (L) Gastrointestinal: normal bowel sounds, non tender, soft Neurologic/Psychiatric: alert, oriented x 3, other (Anxious affect, hyperventilating) Appearance/Memory: appropriate appearance, appropriate insight, no memory impairment Behavior/Eye Contact: cooperative, good eye contact, normal speech Skin: damp Procedures/Interventions Suture Size: 4-0 Progress/Results/Core Measures Results/Orders My Orders Orders - JUSTICE DURBIN Continuous Ekg Monitoring (10/09/20 19:32) Ekg Tracing (10/09/20 19:32) Alprazolam Tablet (Xanax Tablet) (10/09/20 20:15) Alprazolam Tablet (Xanax Tablet) (10/09/20 20:04) Alprazolam Tablet (Xanax Tablet) (10/09/20 20:12) Medications Given in ED Current Medications Medications Dose Ordered Sig/Thom Route Start Time Stop Time Status Last Admin Dose Admin Alprazolam 0.5 mg STK-MED ONCE .ROUTE 10/09/20 20:04 10/09/20 20:12 DC 10/09/20 20:13 1 MG Vital Signs/I&O 10/09/20 10/09/20 19:43 19:43 Temp 36.5 Pulse 101 Resp 28 B/P (MAP) 141/93 (109) Pulse Ox 99 O2 Delivery Room Air Room Air Blood Pressure Mean: 109 Progress Progress Note #1: Time: 20:11 Progress Note Patient appears to have panic attack. He does have morbid obesity and order to try some Xanax. EKG unremarkable. Progress Note #2: Time: 21:22 Progress Note Shortly after the dose of Xanax the patient's symptoms had resolved. We took the oxygen mask off and let him resume his paper mask. Will allow him to follow-up outpatient with his psychiatrist. Hydralazine will be offered. Initial ECG Impression Date: October 09, 2020 Initial ECG Impression Time: 19:48 Initial ECG Rate: 95 Initial ECG Rhythm: Normal Sinus Initial ECG Intervals: Normal Initial ECG Impression: Normal Comment Normal sinus rhythm without clinically relevant ST changes. Departure Impression Primary Impression: Anxiety attack Disposition: 01 HOME, SELF-CARE Condition: Improved Departure-Patient Inst. Decision time for Depature: 21:05 Referrals: NO,LOCAL PHYSICIAN (PCP/Family) Primary Care Physician Patient Instructions: LOCAL PHYSICIAN LIST, Panic Disorder (DC) Add. Discharge Instructions: At the first moment you notice an anxiety attack coming on such as narrowing vision, increased breathing, rapid heart rate, feeling like the room is closing in on you, shortness of air, tingling around your lips or fingertips then you should take a hydroxyzine tablet once every 6 hours as necessary. Follow-up with your primary care team for further management of your symptoms. All discharge instructions reviewed with patient and/or family. Voiced understanding. Scripts Hydroxyzine Pamoate (Vistaril) 25 Mg Capsule 25 MG PO Q6H PRN for ANXIETY, #10 CAP 0 Refills Prov: JUSTICE DURBIN 10/09/20 JUSTICE DURBIN October 09, 2020 20:12
[2020-10-09] MEDS ORDERED: ALPRAZolam 1 MG (XANAX) TAB PO ONE (20:15)
[2020-10-09] MEDS ORDERED: HYDR-3923 PO (21:35)
[2020-10-09 21:47] VITALS: BP 140/91
[2020-10-09] MEDS ORDERED: HYDR25CA PO (21:50)
== END 2020-10-09 21:53 | disposition home or self-care (01) ==
LOC: EDUNIT# 19:27 → ER 19:29
DX: F41.9 Anxiety disorder, unspecified (principal); E66.01 Morbid (severe) obesity due to excess calories; Z68.43 Body mass index [BMI] 50.0-59.9, adult; Z88.5 Allergy status to narcotic agent
CPT/HCPCS: 93005; 93041